=== PATIENT | female | born 2000 | race Two or more races ===

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

== ENCOUNTER 2021-06-05 08:00 | Outpatient (CLI) | payer MEDICAID ==
--- NOTE | 2021-06-05 16:44 | XRAY Report ---
PROCEDURE: Thoracic Spine 3 View INDICATIONS: STRAIN OF MUSCLE OF BACK WALL OF THORAX TECHNIQUE: 3 views of the thoracic spine were acquired. COMPARISON: None. FINDINGS: Bones: No fractures or dislocations. No suspicious bony lesions. 12 pairs of ribs are noted, and a ppear intact where visualized. Soft tissues: No paravertebral stripe thickening. IMPRESSION: No fracture. No osseous lesion. If there is continued clinical concern for pathology, then MRI should be considered for further evaluation. Reviewed by: Stacy Elias MD, PhD on 06/05/2021 4:43 PM PDT Approved by: Stacy Elias MD, PhD on 06/05/2021 4:43 PM PDT Station ID: [id number]
== END 2021-06-05 23:59 | disposition home or self-care (01) ==
LOC: DI.S 08:00
PROVIDERS: ATTEND Emergency Medicine
DX: S29.012A Strain of muscle and tendon of back wall of thorax, initial encounter (principal)

== ENCOUNTER 2021-06-30 22:40 | Emergency (ER) | payer MEDICAID ==
[2021-06-30 22:50] VITALS: BP 135/86
[2021-06-30 23:16] LABS: MUDS CUTOFF CONCENTRATIONS CUTOFF CONC BELOW:
[2021-06-30 23:18] LABS: BILIRUBIN,URINE NEGATIVE (NEGATIVE); GLUCOSE, URINE (UA) NEGATIVE (NEGATIVE); KETONES,URINE (UA) NEGATIVE (NEGATIVE); LEUKOCYTE ESTERASE, URINE NEGATIVE (NEGATIVE); NITRITE,URINE NEGATIVE (NEGATIVE); OCCULT BLOOD,URINE NEGATIVE (NEGATIVE); PH,URINE 5.5 PH (5.0-7.5); PROTEIN,URINE NEGATIVE (NEGATIVE); UROBILINOGEN,URINE 0.2 (NORMAL) E.U./dL (NORMAL)
[2021-06-30 23:22] LABS: CLARITY,URINE CLEAR (CLEAR); HCG UR QUAL NEGATIVE
[2021-06-30 23:29] LABS: BASOPHILS # (AUTO) 0.1 10^3/uL (0.0-0.1); BASOPHILS % (AUTO) 1.3 %; EOSINOPHILS # (AUTO) 0.1 10^3/uL (0.0-0.7); EOSINOPHILS % (AUTO) 1.6 %; HCT - HEMATOCRIT 43.7 % (37.0-47.0); HGB - HEMOGLOBIN 14.7 g/dL (12.0-16.0); LYMPHOCYTES # (AUTO) 3.3 10^3/uL (1.5-3.5); LYMPHOCYTES % (AUTO) 43.8 %; MEAN CORPUSCULAR HEMOGLOBIN 31.3 pg (27.0-31.0); MEAN CORPUSCULAR HGB CONC 33.6 g/dL (32.0-36.0); MEAN CORPUSCULAR VOLUME 93.2 fL (81.0-99.0); MEAN PLATELET VOLUME 8.9 fL (7.9-10.8); MONOCYTES # (AUTO) 0.3 10^3/uL (0.0-1.0); MONOCYTES % (AUTO) 4.5 %; NEUTROPHILS # (AUTO) 3.7 10^3/uL (1.5-6.6); NEUTROPHILS % (AUTO) 48.7 %; PLT - PLATELET COUNT 448 10^3/uL (130-450); RED BLOOD COUNT 4.69 10^6/uL (4.20-5.40); RED CELL DISTRIBUTION WIDTH 12.1 % (12.0-15.0); WHITE BLOOD COUNT 7.5 x10^3/uL (4.8-10.8)
[2021-06-30 23:29] LABS: AMPHETAMINE SCREEN,URINE NEGATIVE (NEGATIVE); BARBITURATE SCREEN,UR NEGATIVE (NEGATIVE); BENZODIAZEPINES SCREEN, URINE NEGATIVE (NEGATIVE); COCAINE SCREEN URINE NEGATIVE (NEGATIVE); METHADONE SCREEN, URINE NEGATIVE (NEGATIVE); METHAMPHETAMINES SCREEN, URINE NEGATIVE (NEGATIVE); OPIATE SCREEN, URINE NEGATIVE (NEGATIVE); OXYCODONE SCREEN, URINE NEGATIVE (NEGATIVE); PROPOXYPHENE SCREEN, URINE NEGATIVE (NEGATIVE); THC CANNABINOID SCREEN, URINE NEGATIVE (NEGATIVE); TRICYCLIC ANTIDEPRESSANT,URINE NEGATIVE (NEGATIVE)
[2021-06-30 23:48] LABS: ACETAMINOPHEN < 10 ug/mL (10-30); ALBUMIN 5.1 g/dL (3.2-5.5); ALBUMIN/GLOBULIN RATIO 1.8 (1.0-2.2); ALKALINE PHOSPHATASE 84 IU/L (42-121); ALT ALANINE AMINOTRANSFERASE 23 IU/L (10-60); AST ASPARTATE AMINOTRANSFERASE 26 IU/L (10-42); BILIRUBIN,TOTAL 0.6 mg/dL (0.2-1.0); BUN - BLOOD UREA NITROGEN 8 mg/dL (6-20); CALCIUM 9.7 mg/dL (8.5-10.3); CARBON DIOXIDE - CO2 24 mmol/L (21-32); CHLORIDE 106 mmol/L (101-111); CREATININE 0.6 mg/dL (0.4-1.0); ETOH - ETHANOL 193.8 mg/dL; GFR - MDRD 127 (>89); GLUCOSE 92 mg/dL (70-100); LIPASE 23 U/L (22-51); POTASSIUM 3.6 mmol/L (3.5-5.0); SALICYLATE < 6.0 mg/dL; SODIUM 143 mmol/L (135-145)
--- NOTE | 2021-07-01 00:45 | ED Physician Documentation ---
PD HPI MHE - Stated complaint Stated Complaint: MHE/SI - Chief complaint Chief Complaint: MHE - History obtained from History obtained from: Patient, Friend - History of Present Illness Primary symptom: Suicidal ideation, Anxiety Timing - onset: How many weeks ago (2) Contributing factors: Family, Substance abuse - ETOH Similar symptoms before: Diagnosis (depression and anxiety) Recently seen: Not recently seen - Additional information Additional information: 21-year-old female who has been treated for anxiety and depression without good success has developed suicidal ideation over the past 2 weeks. She states that she does not feel that she is ever improved on her depression and she typically keeps this bottled up and tells people she is fine. She feels that she has never had improvement from counseling or medications. She is complaining of significant anxiety and tonight had something to drink and she made some statements about feeling suicidal and wanted to take some pills. She states that this is related to her anxiety and she does not believe she would hurt herself. She presents this morning with her fianc of 6 months who is supportive and was unaware that the patient had had an increase in her depression over the past 2 weeks. The patient herself eventually breaks down and reports that she is supposed to go to court for a DUI on 08 July. She feels this is the trigger that is making her depression and anxiety worse. She feels her anxiety is overwhelming and she is not having luck controlling it. Review of Systems Constitutional: denies: Fever Eyes: denies: Decreased vision Ears: denies: Ear pain Nose: denies: Congestion Throat: denies: Sore throat Respiratory: denies: Cough GI: denies: Vomiting PD PAST MEDICAL HISTORY - Past Medical History Past Medical History: Yes Cardiovascular: None Respiratory: Asthma Endocrine/Autoimmune: None GI: None FRUIT PITTER: None : None HEENT: None Psych: Depression, Anxiety Musculoskeletal: None Derm: None - Past Surgical History Past Surgical History: No - Present Medications Home Medications: Ambulatory Orders Medication Instructions Recorded Confirmed Ibuprofen [Motrin] 600 mg PO Q6HR PRN 06/30/21 06/30/21 hydrOXYzine HCL [Hydroxyzine HCl] 25 mg PO QID PRN 06/30/21 06/30/21 methocarbamoL [Methocarbamol] 750 mg PO Q6HR PRN 06/30/21 06/30/21 - Allergies Allergies/Adverse Reactions: Allergies Allergy/AdvReac Type Severity Reaction Status Date / Time No Known Drug Allergies Allergy Verified 06/30/21 22:50 - Social History Does the pt smoke?: No Smoking Status: Never smoker Does the pt drink ETOH?: No Does the pt have substance abuse?: No - Immunizations Immunizations are current?: Yes - POLST Patient has POLST: No PD ED PE NORMAL - Vitals Vital signs reviewed: Yes (Tachycardic and hypertensive) - General General: Alert and oriented X 3, Well developed/nourished, Other (Teary-eyed and emotionally labile) - HEENT HEENT: Atraumatic, PERRL, EOMI - Neck Neck: Supple, no meningeal sign, No bony TTP - Cardiac Cardiac: RRR, No murmur - Respiratory Respiratory: No respiratory distress, Clear bilaterally - Abdomen Abdomen: Normal bowel sounds, Soft, Non tender, Non distended, No organomegaly - Back Back: No CVA TTP, No spinal TTP - Derm Derm: Normal color, Warm and dry, No rash - Extremities Extremities: No deformity, No edema - Neuro Neuro: Alert and oriented X 3, internet marketing analyst 2-12 intact, No motor deficit, No sensory deficit, Normal speech Eye Opening: Spontaneous Motor: Obeys Commands Verbal: Oriented GCS Score: 15 - Psych Psych: Other (The mood is anxious and withdrawn the affect is labile) Results - Vitals Vitals: Vital Signs - 24 hr 06/30/21 22:47 Temperature 36.5 C Heart Rate 119 H Respiratory 22 Rate Blood Pressure 135/86 H O2 Saturation 97 Oxygen O2 Source Room air - Labs Labs: Laboratory Tests 06/30/21 06/30/21 06/30/21 22:51 23:20 23:20 WBC 7.5 RBC 4.69 Hgb 14.7 Hct 43.7 MCV 93.2 MCH 31.3 H MCHC 33.6 RDW 12.1 Plt Count 448 MPV 8.9 Neut # (Auto) 3.7 Lymph # (Auto) 3.3 [place] # (Auto) 0.3 Eos # (Auto) 0.1 Baso # (Auto) 0.1 Absolute Nucleated RBC 0.00 Nucleated RBC % 0.0 Sodium 143 Potassium 3.6 Chloride 106 Carbon Dioxide 24 Anion Gap 13.0 BUN 8 Creatinine 0.6 Estimated GFR (MDRD) 127 Glucose 92 Calcium 9.7 Total Bilirubin 0.6 AST 26 ALT 23 Alkaline Phosphatase 84 Total Protein 8.0 Albumin 5.1 Globulin 2.9 Albumin/Globulin Ratio 1.8 Lipase 23 TSH Urine Color YELLOW Urine Clarity CLEAR Urine pH 5.5 Ur Specific [place] <=1.005 Urine Protein NEGATIVE Urine Glucose (UA) NEGATIVE Urine Ketones NEGATIVE Urine Occult Blood NEGATIVE Urine Nitrite NEGATIVE Urine Bilirubin NEGATIVE Urine Urobilinogen 0.2 (NORMAL) Ur Leukocyte Esterase NEGATIVE Ur Microscopic Review NOT INDICATED Urine Culture Comments NOT INDICATED Urine HCG, Qual NEGATIVE Salicylates < 6.0 Urine Opiates Screen NEGATIVE Ur Oxycodone Screen NEGATIVE Urine Methadone Screen NEGATIVE Ur Propoxyphene Screen NEGATIVE Acetaminophen < 10 L Ur Barbiturates Screen NEGATIVE Ur Tricyclics Screen NEGATIVE Ur Phencyclidine Scrn NEGATIVE Ur Amphetamine Screen NEGATIVE U Methamphetamines Scrn NEGATIVE U Benzodiazepines Scrn NEGATIVE Urine Cocaine Screen NEGATIVE U Cannabinoids Screen NEGATIVE Ethyl Alcohol 193.8 06/30/21 23:20 WBC RBC Hgb Hct MCV MCH MCHC RDW Plt Count MPV Neut # (Auto) Lymph # (Auto) [place] # (Auto) Eos # (Auto) Baso # (Auto) Absolute Nucleated RBC Nucleated RBC % Sodium Potassium Chloride Carbon Dioxide Anion Gap BUN Creatinine Estimated GFR (MDRD) Glucose Calcium Total Bilirubin AST ALT Alkaline Phosphatase Total Protein Albumin Globulin Albumin/Globulin Ratio Lipase TSH 0.90 Urine Color Urine Clarity Urine pH Ur Specific [place] Urine Protein Urine Glucose (UA) Urine Ketones Urine Occult Blood Urine Nitrite Urine Bilirubin Urine Urobilinogen Ur Leukocyte Esterase Ur Microscopic Review Urine Culture Comments Urine HCG, Qual Salicylates Urine Opiates Screen Ur Oxycodone Screen Urine Methadone Screen Ur Propoxyphene Screen Acetaminophen Ur Barbiturates Screen Ur Tricyclics Screen Ur Phencyclidine Scrn Ur Amphetamine Screen U Methamphetamines Scrn U Benzodiazepines Scrn Urine Cocaine Screen U Cannabinoids Screen Ethyl Alcohol PD MEDICAL DECISION MAKING - ED course Complexity details: reviewed old records, reviewed results, re-evaluated patient, considered differential, d/w patient, d/w family ED course: 21-year-old female with a history of anxiety and depression has never been hospitalized previously she has seen counselor previously did not think that that helped at all. Tonight she presents intoxicated and anxious feeling like she wants to take an overdose. She presents with a boyfriend who is her fianc and she has been involved with him for 6 months. He is supportive and at the bedside. The patient herself is emotionally labile and intoxicated. I discussed options with the patient including psychiatric evaluation by a psychiatrist by telepsych and evaluation by social work. The patient did not feel that any of this would help she became quite teary-eyed and eventually she demanded to leave the emergency department. We did not have an affidavit to hold the patient and she denied suicidal ideation. The patient left the emergency department with her significant other. I felt that the risk of the patient attempting or completing suicide was low. She did leave the ED against medical advice. Departure - Departure Disposition: 07 Against Medical Advice Discharge Date/Time: 07/01/21 00:25
== END 2021-07-01 00:25 | disposition left against medical advice (07) ==
LOC: ED 22:40
DX: R45.851 Suicidal ideations (principal); F41.9 Anxiety disorder, unspecified; F10.129 Alcohol abuse with intoxication, unspecified
CPT/HCPCS: 36415; 80053; 80306; 80307; 80320; 80329; 81001; 81003; 81025; 83690; 84443; 85025; 87086; 99283; 99284

== ENCOUNTER 2021-11-26 21:54 | Outpatient (CLI) | payer MEDICAID | END 2021-11-26 21:55 | disposition critical access hospital (66) | LOC: EMS 21:54 | DX: T50.7X2A Poisoning by analeptics and opioid receptor antagonists, intentional self-harm, initial encounter (principal); Z72.89 Other problems related to lifestyle; R47.81 Slurred speech; R46.89 Other symptoms and signs involving appearance and behavior; Z78.1 Physical restraint status | CPT/HCPCS: A0425; A0429; A0999 ==

== ENCOUNTER 2021-11-26 22:27 | Emergency (ER) | payer MEDICAID ==
[2021-11-26 23:09] LABS: MUDS CUTOFF CONCENTRATIONS CUTOFF CONC BELOW:
--- NOTE | 2021-11-26 23:09 | ED Physician Documentation ---
PD HPI MHE - Stated complaint Stated Complaint: OD/SI - Chief complaint Chief Complaint: MHE - History obtained from History obtained from: Patient, EMS, Police - History of Present Illness Primary symptom: Suicidal ideation, Self harm - OD Recently seen: Not recently seen - Additional information Additional information: BIBA. Patient indicates to me that her relative called 911 because patient overdosed on medication. Patient says she does not know how many she took and cannot offer a time frame as to when she took the overdose except that it was earlier this evening. She indicates to me that she took an overdose of naltrexone. When I ask her why she did this, she says "I don't want to be here anymore" (per patient). For clarification, I then ask her if this was done as a means of killing herself and she answers "yes". She admits to drinking alcohol tonight. Most of her answers are vague, often answering "I don't know" to many of my questions. Police provide an STEPH indicating patient made similar vague suicidal statement when they interviewed her on scene. Police STEPH also indicates several notes were found on the floor of patient's room including notes "saying goodbye" and a list of passwords. Per STEPH report, patient's contact /relative (April Garcia) said "Amber hugged her, told her she loved her, and then requested she check on her in the morning. April thought that it was strange that AMBER would ask for her to be checked on in the morning". Review of Systems Cardiac: reports: Reviewed and negative Respiratory: reports: Reviewed and negative GI: reports: Reviewed and negative Psychiatric: reports: Suicidal PD PAST MEDICAL HISTORY - Past Medical History Cardiovascular: None Respiratory: Asthma Endocrine/Autoimmune: None GI: None RADIO DIRECTOR: None : None HEENT: None Psych: Depression, Anxiety Musculoskeletal: None Derm: None - Past Surgical History Past Surgical History: No - Present Medications Home Medications: Ambulatory Orders Medication Instructions Recorded Confirmed Escitalopram [Lexapro] 11/26/21 11/26/21 - Allergies Allergies/Adverse Reactions: Allergies Allergy/AdvReac Type Severity Reaction Status Date / Time No Known Drug Allergies Allergy Verified 06/30/21 22:50 - Social History Does the pt smoke?: No Smoking Status: Never smoker Does the pt drink ETOH?: No Does the pt have substance abuse?: No - Immunizations Immunizations are current?: Yes - POLST Patient has POLST: No PD ED PE NORMAL - Vitals Vital signs reviewed: Yes - General General: Alert and oriented X 3, No acute distress, Well developed/nourished, Other (slurred speech. poor eye contact) - HEENT HEENT: PERRL, EOMI - Cardiac Cardiac: RRR, No murmur - Respiratory Respiratory: No respiratory distress, Clear bilaterally - Abdomen Abdomen: Soft, Non tender - Neuro Eye Opening: To Voice Motor: Obeys Commands Verbal: Oriented GCS Score: 14 Results - Vitals Vitals: Vital Signs - 24 hr 11/26/21 11/27/21 22:37 02:00 Temperature 36.1 C L Heart Rate 104 H 64 Respiratory 20 20 Rate Blood Pressure 113/72 110/70 O2 Saturation 96 100 Oxygen O2 Source Room air - Labs Labs: Laboratory Tests 11/26/21 11/26/21 11/26/21 00:58 00:58 00:58 WBC 5.0 RBC 4.11 L Hgb 13.1 Hct 38.7 MCV 94.2 MCH 31.9 H MCHC 33.9 RDW 12.6 Plt Count 455 H MPV 9.0 Neut # (Auto) 2.9 Lymph # (Auto) 1.6 [place] # (Auto) 0.3 Eos # (Auto) 0.0 Baso # (Auto) 0.1 Absolute Nucleated RBC 0.00 Nucleated RBC % 0.0 Sodium 141 Potassium 3.9 Chloride 107 Carbon Dioxide 23 Anion Gap 11.0 BUN 7 Creatinine 0.5 Estimated GFR (MDRD) 157 Glucose 112 H Calcium 8.6 Total Bilirubin 0.7 AST 23 ALT 25 Alkaline Phosphatase 72 Total Protein 7.5 Albumin 4.3 Globulin 3.2 Albumin/Globulin Ratio 1.3 Lipase 27 TSH 0.66 Urine Color Urine Clarity Urine pH Ur Specific [place] Urine Protein Urine Glucose (UA) Urine Ketones Urine Occult Blood Urine Nitrite Urine Bilirubin Urine Urobilinogen Ur Leukocyte Esterase Ur Microscopic Review Urine Culture Comments Urine HCG, Qual Salicylates < 6.0 Urine Opiates Screen Ur Oxycodone Screen Urine Methadone Screen Ur Propoxyphene Screen Acetaminophen < 10 L Ur Barbiturates Screen Ur Tricyclics Screen Ur Phencyclidine Scrn Ur Amphetamine Screen U Methamphetamines Scrn U Benzodiazepines Scrn Urine Cocaine Screen U Cannabinoids Screen Ethyl Alcohol 214.5 11/26/21 23:05 WBC RBC Hgb Hct MCV MCH MCHC RDW Plt Count MPV Neut # (Auto) Lymph # (Auto) [place] # (Auto) Eos # (Auto) Baso # (Auto) Absolute Nucleated RBC Nucleated RBC % Sodium Potassium Chloride Carbon Dioxide Anion Gap BUN Creatinine Estimated GFR (MDRD) Glucose Calcium Total Bilirubin AST ALT Alkaline Phosphatase Total Protein Albumin Globulin Albumin/Globulin Ratio Lipase TSH Urine Color YELLOW Urine Clarity CLEAR Urine pH 6.5 Ur Specific [place] <=1.005 Urine Protein NEGATIVE Urine Glucose (UA) NEGATIVE Urine Ketones NEGATIVE Urine Occult Blood NEGATIVE Urine Nitrite NEGATIVE Urine Bilirubin NEGATIVE Urine Urobilinogen 0.2 (NORMAL) Ur Leukocyte Esterase NEGATIVE Ur Microscopic Review NOT INDICATED Urine Culture Comments NOT INDICATED Urine HCG, Qual NEGATIVE Salicylates Urine Opiates Screen NEGATIVE Ur Oxycodone Screen POSITIVE H Urine Methadone Screen NEGATIVE Ur Propoxyphene Screen NEGATIVE Acetaminophen Ur Barbiturates Screen NEGATIVE Ur Tricyclics Screen NEGATIVE Ur Phencyclidine Scrn NEGATIVE Ur Amphetamine Screen NEGATIVE U Methamphetamines Scrn NEGATIVE U Benzodiazepines Scrn NEGATIVE Urine Cocaine Screen NEGATIVE U Cannabinoids Screen NEGATIVE Ethyl Alcohol PD MEDICAL DECISION MAKING - ED course Complexity details: reviewed old records, reviewed results, re-evaluated patient, considered differential, d/w patient ED course: Patient arrives intoxicated (ethanol) and admits to intentional overdose of her naltrexone with intent to self-harm. She exhibits slurred speech. The plan is to hold patient in ED until she is sober both clinically and by TRINY redraw (estimated 7 AM target). At approximately 3:25 AM, patient came up to desk demanding to speak with the doctor; I happened to be walking by to evaluate another patient and she confronted me in hallway, demanded to be given her belongings so she could leave. She adds that if she is not given her belongings "I can just call my waiter/waitress cafeteria" (per patient). I explained to patient that she cannot have her belongings at this time and that I need her to go back to her room; I explained to her that her alcohol level is too high at this time. My intention was to then explain that until her alcohol level is lower (below 0.08), I cannot reliably obtain from her whether she has true suicidal intent; this concern is based on her report of intentional overdose earlier tonight and police report / STEPH indicating notes patient left behind that could be interpreted as suicide notes. Unfortunately, I could not explain this part to patient as she repeatedly interrupted me every time I tried to speak, saying "no one is doing shit" , repeatedly demanding her belongings, and then eventually telling me she will just leave in her hospital gown. She proceeded to walk out of the ED and then out the front entrance of the hospital. ICOM contacted regarding this patient. Police subsequently arrived to ED and said they are looking for patient at this time. Departure - Departure Disposition: ED [place] Clinical Impression: Overdose Qualifiers: Encounter type: initial encounter Injury intent: intentional self-harm Qualified Code(s): T50.902A - Poisoning by unspecified drugs, medicaments and biological substances, intentional self-harm, initial encounter Alcoholic intoxication Qualifiers: Complication of substance-induced condition: uncomplicated Qualified Code(s): F10.920 - Alcohol use, unspecified with intoxication, uncomplicated Condition: Stable Discharge Date/Time: 11/27/21 03:30
[2021-11-26 23:12] LABS: BILIRUBIN,URINE NEGATIVE (NEGATIVE); GLUCOSE, URINE (UA) NEGATIVE (NEGATIVE); KETONES,URINE (UA) NEGATIVE (NEGATIVE); LEUKOCYTE ESTERASE, URINE NEGATIVE (NEGATIVE); NITRITE,URINE NEGATIVE (NEGATIVE); OCCULT BLOOD,URINE NEGATIVE (NEGATIVE); PH,URINE 6.5 PH (5.0-7.5); PROTEIN,URINE NEGATIVE (NEGATIVE); UROBILINOGEN,URINE 0.2 (NORMAL) E.U./dL (NORMAL)
[2021-11-26 23:15] LABS: CLARITY,URINE CLEAR (CLEAR); HCG UR QUAL NEGATIVE
[2021-11-26 23:22] LABS: AMPHETAMINE SCREEN,URINE NEGATIVE (NEGATIVE); BARBITURATE SCREEN,UR NEGATIVE (NEGATIVE); BENZODIAZEPINES SCREEN, URINE NEGATIVE (NEGATIVE); COCAINE SCREEN URINE NEGATIVE (NEGATIVE); METHADONE SCREEN, URINE NEGATIVE (NEGATIVE); METHAMPHETAMINES SCREEN, URINE NEGATIVE (NEGATIVE); OPIATE SCREEN, URINE NEGATIVE (NEGATIVE); OXYCODONE SCREEN, URINE POSITIVE (NEGATIVE); PROPOXYPHENE SCREEN, URINE NEGATIVE (NEGATIVE); THC CANNABINOID SCREEN, URINE NEGATIVE (NEGATIVE); TRICYCLIC ANTIDEPRESSANT,URINE NEGATIVE (NEGATIVE)
[2021-11-27 01:07] LABS: BASOPHILS # (AUTO) 0.1 10^3/uL (0.0-0.1); EOSINOPHILS % (AUTO) 0.6 %; HCT - HEMATOCRIT 38.7 % (37.0-47.0); HGB - HEMOGLOBIN 13.1 g/dL (12.0-16.0); LYMPHOCYTES # (AUTO) 1.6 10^3/uL (1.5-3.5); LYMPHOCYTES % (AUTO) 31.7 %; MEAN CORPUSCULAR HEMOGLOBIN 31.9 pg (27.0-31.0); MEAN CORPUSCULAR HGB CONC 33.9 g/dL (32.0-36.0); MEAN CORPUSCULAR VOLUME 94.2 fL (81.0-99.0); MONOCYTES # (AUTO) 0.3 10^3/uL (0.0-1.0); MONOCYTES % (AUTO) 6.8 %; NEUTROPHILS # (AUTO) 2.9 10^3/uL (1.5-6.6); NEUTROPHILS % (AUTO) 58.5 %; PLT - PLATELET COUNT 455 10^3/uL (130-450); RED BLOOD COUNT 4.11 10^6/uL (4.20-5.40); RED CELL DISTRIBUTION WIDTH 12.6 % (12.0-15.0)
[2021-11-27 01:23] LABS: ACETAMINOPHEN < 10 ug/mL (10-30); ALBUMIN 4.3 g/dL (3.2-5.5); ALBUMIN/GLOBULIN RATIO 1.3 (1.0-2.2); ALKALINE PHOSPHATASE 72 IU/L (42-121); ALT ALANINE AMINOTRANSFERASE 25 IU/L (10-60); AST ASPARTATE AMINOTRANSFERASE 23 IU/L (10-42); BILIRUBIN,TOTAL 0.7 mg/dL (0.2-1.0); BUN - BLOOD UREA NITROGEN 7 mg/dL (6-20); CALCIUM 8.6 mg/dL (8.5-10.3); CARBON DIOXIDE - CO2 23 mmol/L (21-32); CHLORIDE 107 mmol/L (101-111); CREATININE 0.5 mg/dL (0.4-1.0); ETOH - ETHANOL 214.5 mg/dL; GFR - MDRD 157 (>89); GLUCOSE 112 mg/dL (70-100); LIPASE 27 U/L (22-51); POTASSIUM 3.9 mmol/L (3.5-5.0); SALICYLATE < 6.0 mg/dL; SODIUM 141 mmol/L (135-145); TOTAL PROTEIN 7.5 g/dL (6.7-8.2)
[2021-11-27 02:06] VITALS: BP 110/70
== END 2021-11-27 03:30 | disposition left against medical advice (07) ==
LOC: EDUNIT# → EDBD → ED 22:27 → SUPCPDRO 22:27 → EEVIPCON 22:27 → ED 11-27 03:30
DX: T50.902A Poisoning by unspecified drugs, medicaments and biological substances, intentional self-harm, initial encounter (principal); F10.920 Alcohol use, unspecified with intoxication, uncomplicated
CPT/HCPCS: 36415; 80053; 80306; 80307; 80320; 80329; 81001; 81003; 81025; 83690; 84443; 85025; 87086; 93005; 99283

== ENCOUNTER 2022-04-28 08:00 | Outpatient (CLI) | payer MEDICAID ==
[2022-04-28 23:18] LABS: NEISSERIA GONORRHOEAE DNA NEGATIVE (NEGATIVE); TRICHOMONAS VAGINALIS DNA NEGATIVE (NEGATIVE)
[2022-04-28 23:19] LABS: CHLAMYDIA TRACHOMATIS DNA POSITIVE (NEGATIVE)
== END 2022-04-28 23:59 | disposition home or self-care (01) ==
LOC: LAB.WC 08:00
PROVIDERS: ATTEND Nurse Practitioner
DX: Z11.3 Encounter for screening for infections with a predominantly sexual mode of transmission (principal)
CPT/HCPCS: 87491; 87591; 87661

== ENCOUNTER 2023-01-26 17:19 | Emergency (ER) | payer MEDICAID ==
--- NOTE | 2023-01-26 18:55 | ED Physician Documentation ---
History of Present Illness - Stated complaint Stated Complaint: LEG/ARM NUMBNESS/DIZZY - Chief complaint Chief Complaint: Neuro - History obtained from History obtained from: Patient - History of Present Illness Pain level max: 0 Pain level now: 0 - Additonal information Additional information: Patient is a 22-year-old female who presents to the emergency department stating that she has had ongoing dizziness for the past several weeks. She states that she uses whippets at least once a day if not more. She states she is on probation so cannot use other drugs or alcohol. She states that she feels numbness and tingling throughout her extremities. She feels lightheaded when she stands up. Patient was recently seen at [facility] for same. She went to the walk-in clinic today as well. Review of Systems Constitutional: denies: Fever, Chills Respiratory: denies: Cough GI: denies: Nausea, Vomiting, Diarrhea Skin: denies: Rash Musculoskeletal: denies: Neck pain, Back pain Neurologic: denies: Generalized weakness, Focal weakness, Headache, Head injury PD PAST MEDICAL HISTORY - Past Medical History Cardiovascular: None Respiratory: Asthma Endocrine/Autoimmune: None GI: None FOAM MOLDER: None : None HEENT: None Psych: Depression, Anxiety Musculoskeletal: None Derm: None - Past Surgical History Past Surgical History: No - Present Medications Home Medications: Ambulatory Orders Medication Instructions Recorded Confirmed Ondansetron Odt [Zofran Odt] 4 mg SL Q8HR PRN 01/26/23 01/26/23 Sertraline HCl 100 mg PO DAILY 01/26/23 01/26/23 - Allergies Allergies/Adverse Reactions: Allergies Allergy/AdvReac Type Severity Reaction Status Date / Time No Known Drug Allergies Allergy Verified 01/26/23 17:26 - Social History Does the pt smoke?: No Smoking Status: Never smoker Does the pt drink ETOH?: No Does the pt have substance abuse?: No - Immunizations Immunizations are current?: Yes - POLST Patient has POLST: No PD ED PE NORMAL - Vitals Vital signs reviewed: Yes - General General: Alert and oriented X 3, No acute distress, Well developed/nourished - HEENT HEENT: Atraumatic, PERRL, Moist mucous membranes - Neck Neck: Supple, no meningeal sign - Cardiac Cardiac: RRR, Strong equal pulses - Respiratory Respiratory: No respiratory distress, Clear bilaterally - Abdomen Abdomen: Soft, Non tender, Non distended - Back Back: No CVA TTP, No spinal TTP - Derm Derm: Warm and dry, No rash - Extremities Extremities: No edema, No calf tenderness / cord - Neuro Neuro: Alert and oriented X 3, stone paver 2-12 intact, No motor deficit, No sensory deficit, Normal speech, Other (NIH stroke scale of 0) Eye Opening: Spontaneous Motor: Obeys Commands Verbal: Oriented GCS Score: 15 - Psych Psych: Normal mood, Normal affect Results - Vitals Vitals: Vital Signs - 24 hr 01/26/23 01/26/23 17:27 20:14 Temperature 36.6 C Heart Rate 102 H 90 Respiratory 16 16 Rate Blood Pressure 103/60 106/60 O2 Saturation 98 98 Oxygen O2 Source Room air - Labs Labs: Laboratory Tests 01/26/23 01/26/23 01/26/23 18:55 18:55 19:10 WBC 7.7 RBC 4.31 Hgb 13.8 Hct 42.7 MCV 99.1 H MCH 32.0 H MCHC 32.3 RDW 14.2 Plt Count 499 H MPV 9.4 Neut # (Auto) 4.4 Lymph # (Auto) 2.3 [place] # (Auto) 0.7 Eos # (Auto) 0.3 Baso # (Auto) 0.1 Absolute Nucleated RBC 0.00 Nucleated RBC % 0.0 Sodium 139 Potassium 3.7 Chloride 102 Carbon Dioxide 26 Anion Gap 11.0 BUN 19 Creatinine 0.6 Estimated GFR (MDRD) 126 Glucose 105 H Calcium 9.3 Phosphorus 4.6 Magnesium 2.2 Total Bilirubin 0.5 AST 17 ALT 22 Alkaline Phosphatase 76 Total Protein 7.8 Albumin 4.3 Globulin 3.5 Albumin/Globulin Ratio 1.2 Urine Color YELLOW Urine Clarity HAZY Urine pH 6.0 Ur Specific [place] >=1.030 H Urine Protein NEGATIVE Urine Glucose (UA) NEGATIVE Urine Ketones NEGATIVE Urine Occult Blood NEGATIVE Urine Nitrite NEGATIVE Urine Bilirubin NEGATIVE Urine Urobilinogen 0.2 (NORMAL) Ur Leukocyte Esterase SMALL H Urine RBC 0-5 Urine WBC 6-10 H Ur Squamous Epith Cells FEW Squamous Urine Bacteria Few Ur Microscopic Review INDICATED Urine Culture Comments INDICATED Urine HCG, Qual NEGATIVE Urine Opiates Screen NEGATIVE Ur Oxycodone Screen NEGATIVE Urine Methadone Screen NEGATIVE Ur Propoxyphene Screen NEGATIVE Ur Barbiturates Screen NEGATIVE Ur Tricyclics Screen NEGATIVE Ur Phencyclidine Scrn NEGATIVE Ur Amphetamine Screen NEGATIVE U Methamphetamines Scrn NEGATIVE U Benzodiazepines Scrn NEGATIVE Urine Cocaine Screen NEGATIVE U Cannabinoids Screen NEGATIVE - Rads (name of study) Head CT Relevant Findings:: Final report received, See rad report PD Medical Decision Making - ED course Complexity details: reviewed results, re-evaluated patient, considered differential, d/w patient, d/w family ED course: No acute findings on laboratory testing, head CT. Her symptoms are consistent with inhalant abuse. Recommend that she stop using whippets. Toxicology screen is negative. Urinalysis appears contaminated, she has no symptoms of UTI, therefore will not treat. Patient is ambulating without difficulty here. Normal neuro exam. Patient counseled regarding signs and symptoms for which I believe and urgent re-evaluation would be necessary. Patient with good understanding of and agreement to plan and is comfortable going home at this time This document was made in part using voice recognition software. While efforts are made to proofread this document, sound alike and grammatical errors may occur. Departure - Departure Disposition: 01 Home, Self Care Clinical Impression: Inhalant abuse, Paresthesia, Dizzy Condition: Good Instructions: ED Inhalation Chemical Follow-Up: your,doctor in 1 week [Other] Comments: Your blood work and CT scan did not show any acute abnormalities today. It is likely the whippets that are causing your symptoms. Please stop using these. Please follow-up with your doctor for further care. Please return if you worsen. Discharge Date/Time: 01/26/23 20:15
[2023-01-26 19:04] LABS: BASOPHILS # (AUTO) 0.1 10^3/uL (0.0-0.1); BASOPHILS % (AUTO) 0.9 %; EOSINOPHILS # (AUTO) 0.3 10^3/uL (0.0-0.7); EOSINOPHILS % (AUTO) 3.9 %; HCT - HEMATOCRIT 42.7 % (37.0-47.0); HGB - HEMOGLOBIN 13.8 g/dL (12.0-16.0); LYMPHOCYTES # (AUTO) 2.3 10^3/uL (1.5-3.5); LYMPHOCYTES % (AUTO) 29.2 %; MEAN CORPUSCULAR HGB CONC 32.3 g/dL (32.0-36.0); MEAN CORPUSCULAR VOLUME 99.1 fL (81.0-99.0); MEAN PLATELET VOLUME 9.4 fL (7.9-10.8); MONOCYTES # (AUTO) 0.7 10^3/uL (0.0-1.0); MONOCYTES % (AUTO) 8.4 %; NEUTROPHILS # (AUTO) 4.4 10^3/uL (1.5-6.6); NEUTROPHILS % (AUTO) 57.3 %; PLT - PLATELET COUNT 499 10^3/uL (130-450); RED BLOOD COUNT 4.31 10^6/uL (4.20-5.40); RED CELL DISTRIBUTION WIDTH 14.2 % (12.0-15.0); WHITE BLOOD COUNT 7.7 x10^3/uL (4.8-10.8)
[2023-01-26] MEDS: SODIUM CHLORIDE 0.9% 1,000 ML IV STA (19:12)
[2023-01-26 19:14] LABS: ALBUMIN 4.3 g/dL (3.2-5.5); ALBUMIN/GLOBULIN RATIO 1.2 (1.0-2.2); BILIRUBIN,TOTAL 0.5 mg/dL (0.2-1.0); CALCIUM 9.3 mg/dL (8.5-10.3); CREATININE 0.6 mg/dL (0.4-1.0); MAGNESIUM 2.2 mg/dL (1.7-2.8); PHOSPHORUS 4.6 mg/dL (2.5-4.6); POTASSIUM 3.7 mmol/L (3.5-5.0); TOTAL PROTEIN 7.8 g/dL (6.7-8.2)
[2023-01-26 19:15] LABS: MUDS CUTOFF CONCENTRATIONS CUTOFF CONC BELOW:
[2023-01-26 19:18] LABS: BILIRUBIN,URINE NEGATIVE (NEGATIVE); GLUCOSE, URINE (UA) NEGATIVE (NEGATIVE); KETONES,URINE (UA) NEGATIVE (NEGATIVE); LEUKOCYTE ESTERASE, URINE SMALL (NEGATIVE); NITRITE,URINE NEGATIVE (NEGATIVE); OCCULT BLOOD,URINE NEGATIVE (NEGATIVE); PROTEIN,URINE NEGATIVE (NEGATIVE); UROBILINOGEN,URINE 0.2 (NORMAL) E.U./dL (NORMAL)
[2023-01-26 19:22] LABS: CLARITY,URINE HAZY (CLEAR); HCG UR QUAL NEGATIVE
--- NOTE | 2023-01-26 19:43 | CT Report ---
PROCEDURE: HEAD WO INDICATIONS: dizzy, uses whippets daily TECHNIQUE: Noncontrast 4.5 mm thick angled axial sections acquired from the foramen magnum to the vertex. For r adiation dose reduction, the following was used: automated exposure control, adjustment of mA and/or kV according to patient size. COMPARISON: None. FINDINGS: Image quality: Excellent. CSF spaces: Basal cisterns are patent. No extra-axial fluid collections. Ventricles are normal in size and shape. Brain: No midline shift. No intracranial masses or hemorrhage. Faustin-white matter interface is norm al. Small calcification in left occipital lobe adjacent to tentorium is seen. Skull and face: Calvarium and visualized facial bones are intact, without suspicious lesions. Sinuses: Visualized sinuses and mastoids are clear. IMPRESSION: No CT evidence of acute intracranial abnormalities. No finding to explain patient's symptom. Reviewed by: Herberth Jiang MD on 01/26/2023 7:41 PM PDT Approved by: Herberth Jiang MD on 01/26/2023 7:41 PM PDT Station ID: [id number]
[2023-01-26 19:56] LABS: AMPHETAMINE SCREEN,URINE NEGATIVE (NEGATIVE); BARBITURATE SCREEN,UR NEGATIVE (NEGATIVE); BENZODIAZEPINES SCREEN, URINE NEGATIVE (NEGATIVE); COCAINE SCREEN URINE NEGATIVE (NEGATIVE); METHADONE SCREEN, URINE NEGATIVE (NEGATIVE); METHAMPHETAMINES SCREEN, URINE NEGATIVE (NEGATIVE); OPIATE SCREEN, URINE NEGATIVE (NEGATIVE); OXYCODONE SCREEN, URINE NEGATIVE (NEGATIVE); PROPOXYPHENE SCREEN, URINE NEGATIVE (NEGATIVE); THC CANNABINOID SCREEN, URINE NEGATIVE (NEGATIVE); TRICYCLIC ANTIDEPRESSANT,URINE NEGATIVE (NEGATIVE)
[2023-01-26 20:02] LABS: BACTERIA,URINE Few /HPF (None Seen); RBC,URINE 0-5 /HPF (0-5); SQUAMOUS EPITHELIAL CELL,UR FEW Squamous (<= Few)
[2023-01-26 20:16] VITALS: BP 106/60
== END 2023-01-26 20:15 | disposition home or self-care (01) ==
LOC: ED 17:19
DX: F18.10 Inhalant abuse, uncomplicated (principal); R20.2 Paresthesia of skin; R42 Dizziness and giddiness; R41.9 Unspecified symptoms and signs involving cognitive functions and awareness; Z79.899 Other long term (current) drug therapy
CPT/HCPCS: 36415; 80053; 80306; 81001; 81003; 81025; 83735; 84100; 85025; 87077; 87086; 87181; 99283; 99284

== ENCOUNTER 2023-12-08 08:00 | Outpatient (CLI) | payer MEDICAID ==
[2023-12-08 20:49] LABS: CHLAMYDIA TRACHOMATIS DNA NEGATIVE (NEGATIVE); NEISSERIA GONORRHOEAE DNA NEGATIVE (NEGATIVE)
[2023-12-08 21:42] LABS: BACTERIAL VAGINOSIS DNA POSITIVE (NEGATIVE); CANDIDA GLABRATA DNA NEGATIVE (NEGATIVE); CANDIDA GROUP DNA NEGATIVE (NEGATIVE); CANDIDA KRUSEI DNA NEGATIVE (NEGATIVE); TRICHOMONAS VAGINALIS DNA NEGATIVE (NEGATIVE)
== END 2023-12-08 23:59 | disposition home or self-care (01) ==
LOC: LAB.WC 08:00
PROVIDERS: ATTEND Nurse Practitioner
DX: N89.8 Other specified noninflammatory disorders of vagina (principal)
CPT/HCPCS: 81514; 87491; 87591; 87661

== ENCOUNTER 2023-12-08 10:32 | Outpatient (CLI) | payer MEDICAID ==
[2023-12-09 08:11] LABS: HBsAG SCREEN Negative (Negative); RPR Non Reactive (Non Reactive)
[2023-12-10 01:08] LABS: HSV 1 IGG TYPE SPEC <0.91 index (0.00-0.90); HSV 2 IGG TYPE SPEC <0.91 index (0.00-0.90)
[2023-12-10 03:11] LABS: HCV AB Non Reactive (Non Reactive); HIV SCREEN 4TH GENERATION Non Reactive (Non Reactive)
== END 2023-12-08 10:33 | disposition home or self-care (01) ==
LOC: LAB 10:32
PROVIDERS: ATTEND Nurse Practitioner
DX: Z11.3 Encounter for screening for infections with a predominantly sexual mode of transmission (principal); N89.8 Other specified noninflammatory disorders of vagina
CPT/HCPCS: 36415; 81514; 86592; 86695; 86696; 86803; 87340; 87389; 87491; 87591; 87661

== ENCOUNTER 2024-01-23 19:53 | Emergency (ER) | payer MEDICAID ==
[2024-01-23 20:15] VITALS: BP 136/88; O2SAT 98
[2024-01-23] MEDS: DOXYCYCLINE 100 MG TABLET PO STA (20:30)
--- NOTE | 2024-01-23 20:32 | ED Physician Documentation ---
History of Present Illness - Stated complaint Stated Complaint: BILAT FOOT PX - Chief complaint Chief Complaint: Ext Problem - History obtained from History obtained from: Patient - Additonal information Additional information: HPI from patient. Patient complains of bilateral foot pain, mostly in the toes. She says this pain was of gradual onset, at least for the past several weeks. There was no i nciting event. The pain is exacerbated with weight bearing. She has been having intermittent relief with naproxen which was prescribed for a recent right ankle injury. She says she "rolled" (per patient) her right ankle "a couple of Fridays ago". For this, she was seen at a walk-in clinic in [place]. She says x-rays were undertaken and she was told the diagnosis was ankle sprain. Review of Systems Constitutional: denies: Fever PD PAST MEDICAL HISTORY - Past Medical History Past Medical History: Yes Cardiovascular: None Respiratory: Asthma Endocrine/Autoimmune: None GI: None BOOK BINDER: None : None HEENT: None Psych: Depression, Anxiety Musculoskeletal: None Derm: None - Past Surgical History Past Surgical History: No - Present Medications Home Medications: Ambulatory Orders Medication Instructions Recorded Confirmed Doxycycline [Vibramycin] 100 mg PO BID #14 tablet 01/23/24 Mupirocin 2% Oint [Bactroban 2% 1 applic TOP BID #22 gm 01/23/24 Oint] - Allergies Allergies/Adverse Reactions: Allergies Allergy/AdvReac Type Severity Reaction Status Date / Time No Known Drug Allergies Allergy Verified 01/23/24 20:09 - Social History Does the pt smoke?: No Smoking Status: Never smoker Does the pt drink ETOH?: No Does the pt have substance abuse?: No - Immunizations Immunizations are current?: Yes - POLST Patient has POLST: No PD ED PE NORMAL - Vitals Vital signs reviewed: Yes - General General: Alert and oriented X 3, No acute distress, Well developed/nourished PD ED PE EXPANDED - Extremities Extremities: Other (TTP associated with swelling and erythema bilateral great toes and middle toes without fluctuance or discharge) Feet visual: 1 - bruising (ecchymosis (purple/dark blue) without TTP) Results - Vitals Vitals: Vital Signs - 24 hr 01/23/24 01/23/24 20:00 20:12 Temperature 36.4 C L Heart Rate 107 H 94 Respiratory 18 Rate Blood Pressure 136/88 H O2 Saturation 98 Oxygen O2 Source Room air PD Medical Decision Making - ED course Complexity details: considered differential, d/w patient ED course: On exam, patient has 4 toes with obvious paronychia; none of these have characteristics on exam to indicate benefit from/need for I&D. She is given doxycycline and I am providing prescription for a 1-week course of doxycycline. I am also prescribing topical mupirocin. Return precautions are reviewed with the patient. She says she has an upcoming appointment with a new PCP in a couple of days (this coming Thursday). This should work for follow-up for her paronychia. Departure - Departure Disposition: Home, Self Care Clinical Impression: Paronychia Condition: Good Instructions: ED Fingernail Infec Prescriptions: Mupirocin 2% Oint [Bactroban 2% Oint] 1 applic TOP BID #22 gm Doxycycline [Vibramycin] 100 mg PO BID #14 tablet Comments: It appears you have infections next to several of your toenails. For this, you are given the first dose of an antibiotic (doxycycline) in the emergency department, and I have electronically submitted a 1-week prescription for this antibiotic to the [facility] in [place]. I have also prescribed a topical antibiotic which you should apply to the affected toes as per the prescription label instructions. Forms: Activity restrictions
== END 2024-01-23 20:40 | disposition home or self-care (01) ==
LOC: ED 19:53
DX: L03.039 Cellulitis of unspecified toe (principal)
CPT/HCPCS: 99283; A9270